=== PATIENT | male | born 1995 | race Caucasian/White ===

== ENCOUNTER 2019-01-18 11:03 | Emergency (ER) | payer SELFPAY ==
[2019-01-18] MEDS ORDERED: IBUPROFEN 800 MG TABLET PO ONE (12:11)
[2019-01-18] MEDS ORDERED: CLINDAMYCIN HCL 150 MG CAPSULE PO ONE (12:11)
--- NOTE | 2019-01-18 12:17 | ER Document Report ---
HPI - HPI Time Seen by Provider: 01/18/19 12:04 Pain Level: Denies Context: Patient is a 23-year-old male who presents to emergency department with a chief complaint of left great toe pain. Patient reports over the past few days he has had noticed increased pain and swelling to the inside aspect of his left great toe. Patient reports he has been using Epson salt baths which does induce drainage of pus. Patient reports the pain and swelling to his left great toe has gotten worse. Patient denies fevers. Patient reports he does work long hours and has not had much rest on the foot. - REPRODUCTIVE Reproductive: DENIES: : Past Medical History - General Information source: Patient - Social History Smoking Status: Unknown if Ever Smoked Chew tobacco use (# tins/day): No Frequency of alcohol use: None Drug Abuse: None Lives with: Family Family History: Reviewed & Not Pertinent Patient has suicidal ideation: No Patient has homicidal ideation: No - Past Medical History Cardiac Medical History: Reports: None Pulmonary Medical History: Reports: None EENT Medical History: Reports: None Neurological Medical History: Reports: None Endocrine Medical History: Reports: None Renal/ Medical History: Reports: None Malignancy Medical History: Reports None GI Medical History: Reports: None Musculoskeletal Medical History: Reports None Skin Medical History: Reports None Psychiatric Medical History: Reports: None Traumatic Medical History: Reports: None Infectious Medical History: Reports: None Surgical Hx: Negative - Immunizations Hx Diphtheria, Pertussis, Tetanus Vaccination: Yes Vertical Provider Document - CONSTITUTIONAL Agree With Documented VS: Yes Exam Limitations: No Limitations General Appearance: No Apparent Distress - INFECTION CONTROL TRAVEL OUTSIDE OF THE [place] IN LAST 30 DAYS: No - HEENT HEENT: Atraumatic, Normal ENT Exam, Normocephalic, PERRLA - NECK Neck: Normal Inspection - RESPIRATORY Respiratory: Breath Sounds Normal, No Respiratory Distress - CARDIOVASCULAR Cardiovascular: Regular Rate, Regular Rhythm - GI/ABDOMEN Gastrointestinal: Abdomen Soft, Abdomen Non-Tender, Normal Bowel Sounds - MUSCULOSKELETAL/EXTREMETIES Musculoskeletal/Extremeties: FROM Notes: Erythema and edema noted to the lateral aspect of the left great toe and between the nail bed and skin. There is a small amount of dried drainage. Less than 2- second cap refill. - NEURO Level of Consciousness: Awake, Alert, Appropriate - DERM Integumentary: Warm, Dry, No Rash Course - Re-evaluation Re-evalutation: 01/18/19 13:40 A small 22-gauge needle was used to separate the skin from the nail bed. There was a small amount of exudate expressed with the blood. I did inform the patient to continue to use warm soaks and use the antibiotic. - Vital Signs Vital signs: Temp Pulse Resp BP Pulse Ox 97.6 F 77 18 147/79 H 100 01/18/19 11:27 01/18/19 11:27 01/18/19 11:27 01/18/19 11:27 01/18/19 11:27 Discharge - Discharge Clinical Impression: Paronychia, Pain of left great toe Condition: Stable Disposition: HOME, SELF-CARE Additional Instructions: *Today you are seen in the emergency department for left great toe pain. You do have a paronychia which is an infection between the nail with surrounding skin. The infection is usually treated by releasing pus which I did with a needle. Please continue to do hot soaks 3-4 times per day. I am prescribing you oral antibiotic called clindamycin. Please take this as prescribed. Paronychia You have an infection between the nail and the surrounding skin, called a paronychia. The germs infect the area after a minor skin injury, such as a hangnail. This infection is treated by releasing the pus. This is usually done by the skin from the nail. If the infection has spread underneath the nail, partial removal of the nail may be necessary. Hot-soak the area three or four times daily. Antibiotics are often given, but are not always necessary. Healing takes about a week. If pain or swelling becomes severe or if you develop fever or chills, call the doctor or return for re-examination. Prescriptions: Clindamycin HCl [Cleocin 150 mg Capsule] 450 mg PO TID 5 Days #15 capsule Forms: Return to Work
[2019-01-18 12:50] VITALS: BP 132/86
== END 2019-01-18 12:50 | disposition home or self-care (01) ==
LOC: ER 11:03
DX: L03.032 Cellulitis of left toe (principal); M79.675 Pain in left toe(s)
CPT/HCPCS: 99283

== ENCOUNTER 2019-02-05 22:19 | Emergency (ER) | payer SELFPAY ==
[2019-02-06] MEDS ORDERED: CLINDAMYCIN HCL 150 MG CAPSULE PO ONE (02:26)
[2019-02-06] MEDS ORDERED: HYDROCODONE/ACETAMINOPHEN 5-325 MG (6 TAB/ER DISP) PO PRN (02:26)
--- NOTE | 2019-02-06 02:33 | ER Document Report ---
ED General - General Chief Complaint: Skin Problem Stated Complaint: LEFT FOOT BIG TOE PAIN Time Seen by Provider: 02/06/19 02:17 TRAVEL OUTSIDE OF THE [place] IN LAST 30 DAYS: No - HPI Notes: Patient is a 24-year-old male who presents emergency department for evaluation. He has a history of an ingrown toenail. He states he had a procedure performed were "she cut it and they got some pus" but he states after improvement he got worse. He denies any fevers chills. No nausea or vomiting. He has not followed up with anyone else. He is been trying some Epsom salt soaks without any significant relief. - Related Data Allergies/Adverse Reactions: amoxicillin trihydrate [From Augmentin] Allergy (Intermediate, Verified 01/18/19 12:17) Hives cephalexin [Cephalexin] Allergy (Intermediate, Verified 01/18/19 12:17) Hives Potassium Clavulanate * [From Augmentin] Allergy (Intermediate, Verified 01/18/19 12:17) Hives Past Medical History - General Information source: Patient - Social History Smoking Status: Never Smoker Chew tobacco use (# tins/day): No Frequency of alcohol use: Occasional Drug Abuse: None Family History: Reviewed & Not Pertinent Patient has suicidal ideation: No Patient has homicidal ideation: No - Immunizations Hx Diphtheria, Pertussis, Tetanus Vaccination: Yes Review of Systems - Review of Systems Constitutional: No symptoms reported EENT: No symptoms reported Cardiovascular: No symptoms reported Respiratory: No symptoms reported Gastrointestinal: No symptoms reported Genitourinary: No symptoms reported Musculoskeletal: No symptoms reported Skin: See HPI Neurological/Psychological: No symptoms reported Physical Exam - Vital signs Vitals: Temp Pulse Resp BP Pulse Ox 98.2 F 85 18 154/97 H 98 02/05/19 22:42 02/05/19 22:42 02/05/19 22:42 02/05/19 22:42 02/05/19 22:42 - Notes Notes: Physical exam is limited the area of chief complaint. Examination of the left lower extremity yields a mild amount of erythema and edema over the hallux of the left great toe. No induration, fluctuance, lymphangitic streaking. Sensation is intact. All the patient's toenails are cut extremely short. Dorsalis pedis pulses 2+. Course - Re-evaluation Re-evalutation: 02/06/19 02:31 Patient presents emergency department for evaluation. Ultimately, he request toenail removal. I do not perform this procedure electively. I will refer him on to podiatry. I will treat him with clindamycin and a small amount of pain medication. We will give referral to podiatry. He is to return to the ED with worsening. - Vital Signs Vital signs: Temp Pulse Resp BP Pulse Ox 98.2 F 85 18 154/97 H 98 02/05/19 23:23 02/05/19 23:23 02/05/19 23:23 02/05/19 23:23 02/05/19 23:23 Discharge - Discharge Clinical Impression: Ingrown left big toenail Condition: Stable Disposition: HOME, SELF-CARE Instructions: Ingrown Nail ([facility]) Additional Instructions: Take antibiotic as prescribed. Gipsy as needed for severe pain. Follow-up with podiatry. Return to the ED with worsening or new concerning symptoms of any sort. Referrals: NAFISA COX MD [NO LOCAL MD] - Follow up as needed LEROY COX DPM [NO LOCAL MD] - Follow up as needed
[2019-02-06 02:45] VITALS: BP 149/87
== END 2019-02-06 02:44 | disposition home or self-care (01) ==
LOC: ER 22:19
DX: L60.0 Ingrowing nail (principal); Z88.0 Allergy status to penicillin
CPT/HCPCS: 99283